=== PATIENT | male | born 1950 | race Caucasian/White ===

== ENCOUNTER 2024-11-09 17:14 | Emergency (ER) | payer MEDICARE, SELFPAY ==
--- NOTE | ~2024-11-09 | XR_ITS ---
CLINICAL HISTORY: RIght sided chest pain 2 view chest x-ray Comparison: None Findings: Minimal interstitial prominence. No focal consolidation. Normal size heart. No acute fracture. IMPRESSION: Minimal interstitial prominence. No focal consolidation. This document has been electronically signed by: Steve Diehl MD on 11/09/2024 18:26:55
--- NOTE | ~2024-11-09 | XR_ITS ---
CLINICAL HISTORY: back pain 3 views lumbar spine Comparison: None Findings: Chronic appearing height loss at T12 and L1. Significant disc space narrowing at L1-L2. Moderate disc space narrowing diffusely. Facet hypertrophy within the lower lumbar spine. No significant degenerative change. IMPRESSION: Moderate chronic changes are suggested. No comparison study. This document has been electronically signed by: Steve Diehl MD on 11/09/2024 18:27:24
[2024-11-09 17:18] VITALS: BP 143/71; PULSE 67; RESP 16; TEMP 36.5; O2SAT 97; BMI 29.8
--- NOTE | 2024-11-09 17:30 | ECG_ITS ---
Test Reason : R SIDED CP Blood Pressure : */* mmHG Vent. Rate : 62 BPM Atrial Rate : 62 BPM P-R Int : 196 ms QRS Dur : 80 ms QT Int : 392 ms P-R-T Axes : 90 -2 39 degrees QTcB Int : 397 ms Normal sinus rhythm Normal ECG When compared with ECG of 26-Dec-2005 14:49, No significant changes seen Referred By: Ad Dye Electronically Signed By: Anders Bryant
[2024-11-09 17:44] LABS: MANUAL DIFF FLAG NO
[2024-11-09 17:46] LABS: Basophils Percent Auto 0.2 % (0-2); Eosinophils Absolute Auto 0.1 X10*3/uL (0.0-0.4); Eosinophils Percent Auto 2.5 % (0-4); Hemoglobin 14.2 g/dl (14.0-18.0); Imm Gran Abs Auto 0.01 X10*3/uL (0.00-0.03); Imm Gran Pct Auto 0.2 % (0.0-0.4); Lymphocytes Absolute Auto 1.2 X10*3/uL (1.2-4.9); Lymphocytes Percent Auto 22.2 % (20-40); Mean Corpuscular HGB Conc 35.5 g/dl (31.0-36.0); Mean Corpuscular Hemoglobin 33.7 pg (27.0-33.0); Mean Platelet Volume 8.7 fL (9.4-12.4); Monocytes Absolute Auto 0.7 X10*3/uL (0.1-1.2); Monocytes Percent Auto 12.2 % (2-11); Neutrophils Absolute Auto 3.5 x10*3/uL (2.0-8.3); Neutrophils Percent Auto 62.7 % (45-73); Platelet Count 159 X10*3/uL (160-400); Red Blood Count 4.21 X10*6/uL (4.60-5.80); Red Cell Distribution Width 12.5 % (11.0-16.0); White Blood Count 5.6 X10*3/uL (4.8-10.8)
--- NOTE | 2024-11-09 17:49 | ED.GENADULT ---
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 Pain over right low back, with radiation upward to the mid back. Denies radiation of pain into the right lower extremity, no weakness of lower extremity no paresthesia, no urinary retention or bowel incontinence. Patient denies mechanism of injury, no repetitive activities. No trauma. Pain worse with movement. Related Data Previous Rx's ?Medication ?Instructions ?Recorded ketorolac 10 mg tablet 10 mg PO Q6H PRN pain #20 tabs 11/09/24 methocarbamol 750 mg tablet 1,500 mg (2 x 750 mg) PO BID PRN 11/09/24 pain, moderate #20 tabs Allergies Allergy/AdvReac Type Severity Reaction Status Date / Time No Known Allergies Allergy Verified 11/09/24 17:22 [No Known Allergies*] Review of Systems Review of Systems: Yes all other systems are reviewed and are negative Constitutional: Constitutional: Denies fatigue and Denies fever(s) Cardiovascular: Cardiovascular: Denies chest pain and Denies dyspnea Respiratory: Respiratory: Denies cough and Denies dyspnea Gastrointestinal: Gastrointestinal: Denies abdominal pain, Denies nausea and Denies vomiting Genitourinary: Genitourinary: Denies dysuria and Denies flank pain Musculoskeletal: Musculoskeletal: Reports back pain, Denies muscle weakness, Denies numbness, Denies radiating pain into limb and Denies tingling Neurologic: Denies numbness and Denies tingling Endocrine: Endocrine: Denies fatigue [facility] Past Medical History Attestation statement: The following information was validated with the patient. Social History Social History Advance Directives: No Advance Directives Information Provided: No Do you have a plan to hurt others: No Plan Physical Exam ED Vital Signs: Vital Signs - 24 hr 11/09/24 17:18 11/09/24 20:48 11/09/24 22:18 Temperature 97.7 F 97.5 F 98.1 F Pulse Rate 67 68 69 Respiratory Rate 16 16 16 Blood Pressure 143/71 H 142/75 H 124/69 Pulse Oximetry 97 98 98 Oxygen Delivery Method Room Air Room Air Room Air 11/09/24 22:31 Temperature 98.1 F Pulse Rate 69 Respiratory Rate 16 Blood Pressure 124/69 Pulse Oximetry 98 Oxygen Delivery Method Room Air BMI result Body Mass Index 29.8 Const Other: Alert well-appearing Orientation/consciousness: patient oriented x3 Resp Effort & Inspection: normal respiratory effort Cardio Other: Normal peripheral perfusion Skin Other: Warm dry no rash Neuro Other: Cranial nerves intact with the exception of cranial nerve 8 General: patient oriented x3, gait normal and no focal motor deficits Extrem Other: Strength 5/5 bilateral lower extremity Psych Other: Cooperative Course Course Course Narrative: RME: 73-year-old male presents to ED for constant right-sided back right-sided chest pain since last night without any trauma. Patient denies any shortness of breath fever or chills. Patient denies any genitourinary symptoms. Positive for right sided chest tenderness on palpation. EKG labs chest x-ray lumbar spine x-ray ordered. Medications Administered Discontinued Medications Generic Name Dose Route Start Last Admin Trade Name Freq PRN Reason Stop Dose Admin Ketorolac Tromethamine 15 mg 11/09/24 21:47 11/09/24 22:01 Ketorolac Tromethamine 15 Mg/Ml Vial IM 11/09/24 21:48 15 mg ONCE ONE Administration Methocarbamol 1,500 mg 11/09/24 21:47 11/09/24 22:01 Methocarbamol 750 Mg Tablet PO 11/09/24 21:48 1,500 mg ONCE ONE Administration Medical Decision Making Medical Decision Making [facility] Narrative: 73-year-old deaf male presents with back pain x1 day. Pain over right low back, with radiation upward to the mid back. Denies radiation of pain into the right lower extremity, no weakness of lower extremity no paresthesia, no urinary retention or bowel incontinence. Patient denies mechanism of injury, no repetitive activities. No trauma. Pain worse with movement. No relevant chronic issues History: Per patient I have considered the following differential diagnoses: Musculoskeletal strain, compression fracture, lumbar radiculopathy, cauda equina Plan: Screening labs were ordered from triage, no acute findings as expected. Patient was here with musculoskeletal pain. We will obtain imaging. He has no radicular symptoms and he has no red flag signs symptoms concerning for cord compression. I have independently reviewed the following tests: Labs: No leukocytosis, not anemic, no electrolyte abnormality noted EKG: Normal sinus rhythm, rate of 62, no ischemic changes no ectopy QTC 397 Chest x-ray: indings: Minimal interstitial prominence. No focal consolidation. Normal size heart. No acute fracture. IMPRESSION: Minimal interstitial prominence. No focal consolidation. X-ray lumbar spine:Findings: Chronic appearing height loss at T12 and L1. Significant disc space narrowing at L1-L2. Moderate disc space narrowing diffusely. Facet hypertrophy within the lower lumbar spine. No significant degenerative change. IMPRESSION: Moderate chronic changes are suggested. No comparison study. Lab Data 11/09/24 17:40 11/09/24 17:40 Labs: Lab Results 11/09/24 Range/Units 17:40 WBC 5.6 (4.8-10.8) X10*3/uL RBC 4.21 L (4.60-5.80) X10*6/uL Hgb 14.2 (14.0-18.0) g/dl Hct 40.0 L (42.0-52.0) % MCV 95.0 (80.0-98.0) fL MCH 33.7 H (27.0-33.0) pg MCHC 35.5 (31.0-36.0) g/dl RDW 12.5 (11.0-16.0) % Plt Count 159 L (160-400) X10*3/uL MPV 8.7 L (9.4-12.4) fL Immature Gran % (Auto) 0.2 (0.0-0.4) % Neut % (Auto) 62.7 (45-73) % Lymph % (Auto) 22.2 (20-40) % [place] % (Auto) 12.2 H (2-11) % Eos % (Auto) 2.5 (0-4) % Baso % (Auto) 0.2 (0-2) % Lymph # (Auto) 1.2 (1.2-4.9) X10*3/uL [place] # (Auto) 0.7 (0.1-1.2) X10*3/uL Eos # (Auto) 0.1 (0.0-0.4) X10*3/uL Baso # (Auto) 0.0 (0.0-0.2) X10*3/uL Abs Immat Gran (auto) 0.01 (0.00-0.03) X10*3/uL Absolute Neuts (auto) 3.5 (2.0-8.3) x10*3/uL Absolute Nucleated RBC 0.000 (0.0-0.012) X10*3/uL Nucleated RBC % (auto) 0.0 (0.0-0.2) /100WBC PT 10.7 L (10.9-12.4) SEC INR 0.9 (0.9-1.1) APTT 30.9 (26.0-36.8) SEC Sodium 141 (135-145) mmol/L Potassium 4.3 (3.3-5.1) mmol/L Chloride 108 (96-108) mmol/L Carbon Dioxide 27 (22-29) mmol/L Anion Gap 10 L (12-20) BUN 18 H (9-16) mg/dL Creatinine 0.97 (0.5-1.4) mg/dL Estim Creat Clear Calc 82.9 Estimated GFR > 60 Random Glucose 100 (60-115) mg/dL Calcium 9.7 (8.4-10.2) mg/dL Total Bilirubin 0.3 (0.0-1.0) mg/dL AST 31 (5-37) U/L ALT 35 (0-40) U/L Alkaline Phosphatase 88 (39-117) U/L Troponin I High Sens 3.0 (<3.5-35.0) ng/L Total Protein 6.6 (6.5-8.0) g/dL Albumin 4.1 (3.5-5.0) g/dL Discharge Plan 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 See home care instructions. Use the ketorolac as directed for pain, this is an anti-inflammatory. Take this medication with food. Use the methocarbamol as needed for further pain, this is a muscle relaxant. This medication will cause drowsiness, do not drive or operate machinery while taking the medication. All of your screening labs in the chest x-ray were normal. Follow up with your primary care as needed. Prescriptions: New methocarbamol 750 mg tablet 1,500 mg PO BID PRN (Reason: pain, moderate) Qty: 20 0RF ketorolac 10 mg tablet 10 mg PO Q6H PRN (Reason: pain) Qty: 20 0RF Rx Instructions: maximum total duration of 5 days from all oral, intranasal, or parenteral formulations. The patient received an intramuscular dose of Toradol here in the emergency room. Interventions: ED Discharge Assessment Last Done: 11/09/24 22:31 Discharge Date/Time: 11/09/24 22:33 Print Language: [place] Sign Language
[2024-11-09 17:52] LABS: INTERNATIONAL NORM RATIO 0.9 (0.9-1.1); Prothrombin Time 10.7 SEC (10.9-12.4)
[2024-11-09 17:54] LABS: Partial Thromboplastin Time 30.9 SEC (26.0-36.8)
[2024-11-09 18:08] LABS: Alanine Aminotransferase 35 U/L (0-40); Albumin Level 4.1 g/dL (3.5-5.0); Alkaline Phosphatase 88 U/L (39-117); Anion Gap 10 (12-20); Aspartate Amino Transferase 31 U/L (5-37); Bilirubin Total 0.3 mg/dL (0.0-1.0); Blood Urea Nitrogen 18 mg/dL (9-16); Calcium 9.7 mg/dL (8.4-10.2); Carbon Dioxide 27 mmol/L (22-29); Chloride 108 mmol/L (96-108); Creatinine Clr Calc Pharmacy 82.9; Estimated Glomerular Filt Rate > 60; Glucose Random 100 mg/dL (60-115); Potassium 4.3 mmol/L (3.3-5.1); Sodium 141 mmol/L (135-145); Total Protein 6.6 g/dL (6.5-8.0)
--- OUTSIDE RECORDS SUMMARY | 2024-11-09 18:56 | XMS_ITS | Clinical Summary ---
Author Organization 175 [facility] Address [address] [place] [address] Phone Care Team Providers Care Hearing Aide Technician Name Role Phone Tessa Crump MD Primary Care Provider [phone] Allergies Active Allergy Reactions Criticality Noted Date Comments Other 06/13/2015 Seasonal Allergies-Other Reaction(s): Runny Nose/Rhinitis Medications losartan (COZAAR) 50 mg tablet Take 1 tablet (50 mg total) by mouth 1 (one) time each day. 12/20/19 24 Active fluticasone propionate (FLONASE) 50 mcg/actuation nasal spray Active multivitamin with minerals (MULTIPLE VITAMIN-MINERAL S ORAL) Take 1 Tablet by mouth daily. Active MAGNESIUM ORAL Take 1 Tablet by mouth daily. Active finasteride (PROSCAR) 5 mg tablet Take 1 tablet (5 mg total) by mouth 1 (one) time each day. Active albuterol HFA (PROAIR HFA ; PROVENTIL HFA ; VENTOLIN HFA) 90 mcg/actuation inhaler Inhale 2 Puffs into the lungs every 6 hours as needed for Cough, Wheezing or Shortness of Breath for up to 30 days. 08/23/19 24 Active tetrahydrozolin e 0.05 % ophthalmic solution 1 Drop as needed. Active multivitamin with minerals tablet Take 1 Tablet by mouth daily. Active carboxymethylce -glycern-poly80 (Refresh Optive Advanced) 0.5-1-0.5 % drops apply to the eye. Active magnesium hydroxide (MILK OF MAGNESIA) 400 mg/5 mL suspension Take by mouth daily as needed. Active ketoconazole (NIZORAL) 2 % cream 02/09/20 20 Active mometasone (ELOCON) 0.1 % cream 08/11/19 Active OMEGA-3 FATTY ACIDS-FISH OIL ORAL Take by mouth daily. Active tamsulosin (FLOMAX) 0.4 mg 24 hr capsule Take 0.4 mg by mouth at bedtime. Active MEN'S MULTI-VITAMIN ORAL Take 1 Tablet by mouth daily. Active aspirin 81 mg EC tablet Take 81 mg by mouth daily. Active albuterol HFA (PROAIR HFA ; PROVENTIL HFA ; VENTOLIN HFA) 90 mcg/actuation inhaler Inhale 2 puffs by mouth every 6 (six) hours if needed for wheezing or shortness of breath. 3 each 3 10/15/19 25 026 Active cetirizine (ZyrTEC) 10 mg tablet TAKE 1 TABLET BY MOUTH DAILY 30 tablet 1 10/24/19 25 Active ibuprofen (ADVIL,MOTRIN) 600 mg tabletIndicatio ns:Chronic low back pain, unspecified back pain laterality, unspecified whether sciatica present Take 1 tablet (600 mg total) by mouth 4 (four) times a day if needed for mild pain (pain). Take with food. 90 tablet 10/27/19 25 026 Active cetirizine (ZyrTEC) 10 mg tablet Take 1 tablet (10 mg total) by mouth 1 (one) time each day. 12/10/19 24 025 Discontinued Active Problems Problem Noted Date Diagnosed Date Kidney cysts 05/12/2024 Hypertension 02/04/2024 Overview (05/12/2024): Last Assessment & Plan: Blood pressure is at goal is 130/80 on current regimen which includes losartan Dyspnea 12/23/2023 Overview (05/12/2024): Last Assessment & Plan: Intermittent dyspnea on exertion. I recommended an exercise treadmill stress test to evaluate exercise capacity and for evidence of cardiac ischemia. If unremarkable then I would likely attribute his dyspnea to weight gain. Lung nodule 08/01/2023 Cardiomegaly 11/14/2021 Ascending aorta dilatation 11/23/2020 Overview (05/12/2024): [address] 10/03/20; 4.4 cm In 2020. Last Assessment & Plan: Will plan to follow with repeat echocardiogram in 1 year. Blood pressure at goal less than 130/80. Left inguinal hernia 10/02/2018 Overview (05/12/2024): Small, fat containing noted on CT done by Dr. Monte Abdominal pain, chronic, right lower quadrant Kidney stone 01/20/2013 Known medical problems 05/23/2010 Overview (05/12/2024): Hearing Impaired Person Allergic rhinitis 11/10/2009 Dermatophytosis of nail 11/10/2009 Spondylosis 11/10/2009 Benign prostatic hyperplasia without lower urinary tract symptoms 11/09/2009 Encounters Date Type Department Care Team Description 10/26/2024 2:30 PM EDT Office Visit Internal Medicine - [address] [phone] Marii Reece NP Primary hypertension (Primary Dx); Benign prostatic hyperplasia without lower urinary tract symptoms; Ascending aorta dilatation (CMS/HCC); Aneurysm of descending thoracic aorta without rupture (CMS/HCC); Lung nodule; Diverticulitis; Chronic low back pain, unspecified back pain laterality, unspecified whether sciatica present 10/26/2024 Telephone Internal Medicine - [place] [address] [phone] Marii Reece NP Medical supply 10/14/2024 11:00 AM EDT Office Visit Pulmonolgy - [place] [address] [phone] Ariela Marlow MD Lung nodules (Primary Dx); Chronic bronchitis, unspecified chronic bronchitis type (CMS/HCC) 10/14/2024 Telephone Internal Medicine [facility] [address] [phone] Tessa Crump MD Error 09/21/2024 1:37 PM EST - 09/21/2024 11:59 PM EST Hospital Encounter CT Scan - [address] [phone] Chronic bronchitis, unspecified chronic bronchitis type (CMS/HCC); Lung nodules Discharge Disposition: Home or Self Care from Last 3 Months Immunizations Name Administration Dates Next Due Influenza Quadravalent, MDCK , 0.5ml, preservative free (Flucelvax) 6mo and older 08/28/2019,08/26/2018 Influenza trivalent, 0.5mL ( Fluzone High-dose) 65yo and older 06/13/2021 Influenza trivalent, with pr eservative (Fluzone; Afluria) 6mo and older 09/28/2016,06/13/2015,06/17/2014,04/20,08/25/2012,06/15/2010,05/02/2009 ,06/21/2008 Pfizer SARS-CoV-2 COVID-19, mRNA, LNP-S, preservative free 05/22/2021,11/23/2020,11/02/2020 Pneumococcal conjugate 13 va lent (Prevnar 13, PCV13) 2mo and older 11/05/2017 Pneumococcal polysaccharide 23 valent (Pneumovax 23) 2yo and older 09/28/2016 Td Tetanus diptheria (Tdvax) 7yo and older 06/21/2008 Tdap Tetanus diptheria acell ular pertussis (Boostrix; Adacel) 7yo and older 09/26/2012 Zoster Live 04/20/2013,09/26/2012 Zoster recombinant (Shingrix ) 19yo and older 07/06/2020,04/29/2020 Surgical History Surgery Date Site/Laterality Comments FOOT SURGERY PROCEDURE: HISTORICAL FOOT SURGERY; COMMENT: broken foot COLONOSCOPY 12/15/2008 PROCEDURE: HISTORICAL COLONOSCOPY; COMMENT: Dr Ratliff - 3 mm flat tubular adenomatous polyp of the transverse colon COLONOSCOPY 2012 PROCEDURE: MD COLONOSCOPY FLX DX W/COLLJ SPEC WHEN PFRMD; COMMENT: melanosis coli, no polyps Medical History Medical History Date Comments Deaf DX:Deaf; COMMENT : Spondylosis DX:Spondylosis Diverticulosis 10/2009 DX:Diverticulosi s; COMMENT: on CT Scan Degenerative arthritis of lumbar spine DX:Degenerative arthritis of lumbar spine; COMMENT: without evidence of significant interspace narrowing or comppression fracture Hearing impaired person 05/23/2010 DX:Heari ng impaired person Kidney stone 01/20/2013 DX:Kidney stone Dermatophytosis of nail 11/10/2009 DX:[place] tophytosis of nail BPH (benign prostatic hypertrophy) 11/09/2009 DX:BPH (benign prostatic hypertrophy) Abdominal pain, chronic, rig ht lower quadrant 07/08/2013 DX:Abdominal pain, chronic, right lower quadrant Allergic rhinitis 11/10/2009 DX:Allergic rh initis Kidney cysts DX:Kidney cysts Family History Medical History Relation Name Comments Other: heart disease Father COPD Mother currently on ho spice Other: alcholism Mother Autoimmune disease Neg Hx Breast cancer Neg Hx Colon cancer Neg Hx Coronary artery disease Neg Hx Diabetes Neg Hx Heart attack Neg Hx Heart failure Neg Hx Hyperlipidemia Neg Hx Hypertension Neg Hx Mental illness Neg Hx Prostate cancer Neg Hx Sleep apnea Neg Hx Thyroid disease Neg Hx Relation Name Status Comments Father (Age 60) heart, [place] Mother (Age 99) deaf; HTN, copd, alcoholic in remission, prior smoker; 97 in 2017 Son Alive bipolar Social History Tobacco Use Types Packs/Day Years Used Date Smoking Tobacco: Former Cigarettes 0.3 10 0 08/05/1967 - 08/05/1977 Smokeless Tobacco: Never Tobacco Cessation:Counseling Given: Not Answered Alcohol Use Standard Drinks/Week Comments No 0 (1 standard drink = 0.6 oz pur e alcohol) Sex and Gender Information Value Date Recorded Sex Assigned at Not on file Legal Sex Male 8:59 PM EST Gender Identity Not on file Sexual Orientation Not on file Obstetrics History Last Filed Vital Signs Vital Sign Reading Time Taken Comments Blood Pressure 112/74 10/14/2024 11:03 AM EDT Pulse 76 10/14/2024 11:03 AM EDT Temperature 35.8 ??C (96.5 ??F) 10/14/2024 11:03 AM E DT Respiratory Rate 17 10/14/2024 11:03 AM EDT Oxygen Saturation 96% 10/14/2024 11:03 AM EDT Inhaled Oxygen Concentration - - Weight 102 kg (225 lb 3.2 oz) 10/14/2024 11:03 A M EDT Height 180.3 cm (5' 11 ) 10/14/2024 11:03 AM EDT Body Mass Index 31.41 10/14/2024 11:03 AM EDT Plan of Treatment Upcoming Encounters Date Type Department Care Team (Latest Contact Info) Description 11/17/2024 2:00 PM EDT Evaluation [address] [place] [phone] Brandy Marin, PT 11/23/2024 2:00 PM EDT Consult Gastroenterology - [place] [address] [phone] Bean Mckee PA [address] [phone] 12/21/2024 2:30 PM EDT Office Visit Internal Medicine - [place] [address] [phone] Tessa Crump MD [address] [phone] 01/26/2025 2:30 PM EDT Ancillary Procedure [facility] [address] [facility] [address] [place] [phone] 10/14/2025 1:00 PM EDT Office Visit Pulmonolgy - [place] [address] [phone] Ariela Marlow MD [address] [phone] Health Maintenance Due Date Last Done Comments Colorectal Cancer Screening: Colonoscopy 07/14/2022 Falls Risk Assessment 07/14/2022 Social Influencers of Health Screening 07/14/2022 Depression Screening 08/01/2024 08/01/2023 Medicare Annual Wellness Visit 08/01/2024 08/01/2023 Hypertension/CHF/CAD Annual BMP Blood Test 06/30/2025 06/30/2024, 08/23/2023 Cholesterol Screening (Lipid Panel) 06/30/2029 06/30/2024, 08/23/2023 DTaP,Tdap,and Td Vaccines (4 - Td or Tdap) 04/03/2033 04/03/2023, 09/26/2012, 06/21/2008 Abdominal Aortic Aneurysm (AAA) Screen Completed 12/18/2012 Hepatitis C Screening Completed 09/01/2019 Pneumococcal Vaccine: 50+ Years Completed 04/29/2020, 11/05/2017, 09/28/2016 Zoster Vaccines Completed 07/06/2020, 04/06, 04/20/2013, Additional history exists RSV Immunization Adult Patients Completed 05/14/2023 COVID-19 Vaccine Completed 05/05/2024, , 06/21/2022, Additional history exists Influenza Vaccine Completed 05/05/2024, , 06/13/2021, Additional history exists HIB Vaccines Aged Out No longer eligi ble based on patient's age to complete this topic HPV Vaccines Aged Out No longer eligi ble based on patient's age to complete this topic Hepatitis A Vaccines Aged Out No long er eligible based on patient's age to complete this topic Hepatitis B Vaccines Aged Out No long er eligible based on patient's age to complete this topic IPV Vaccines Aged Out No longer eligi ble based on patient's age to complete this topic MMR Vaccines Aged Out No longer eligi ble based on patient's age to complete this topic Meningococcal ACWY Vaccine Aged Out N o longer eligible based on patient's age to complete this topic Meningococcal B Vaccine Aged Out No l onger eligible based on patient's age to complete this topic RSV Immunization Patients Under 20 months Aged Out No longer eligible based on patient's age to complete this topic Varicella Vaccines Aged Out No longer eligible based on patient's age to complete this topic Procedures Procedure Name Priority Date/Time Associated Diagnosis Comments CT CHEST WO CONTRAST Routine 09/21/2024 1:52 PM EST Chronic bronchitis, unspecified chronic bronchitis type (CMS/HCC) Lung nodules COMPREHENSIVE METABOLIC PANEL Routine 06/30/2024 7:47 AM EST Nonspecific abnormal results of kidney function study Essential hypertension, benign Hyperlipemia LIPID PANEL WITH REFLEX TO DIRECT LDL Routine 06/30/2024 7:47 AM EST Nonspecific abnormal results of kidney function study Essential hypertension, benign Hyperlipemia DEPRESSION SCREENING Routine 08/01/2023 HEPATITIS C SCREENING Routine 09/01/2019 ABDOMINAL AORTIC ANEURYSM SCRREN Routine 12/18/2012 from Last 3 Months or Most Recently Relevant to Health Maintenance Results * CT Chest wo Contrast (09/21/2024 1:52 PM EST) Anatomical Region Laterality Modality Body Computed Tomogra phy 09/21/2024 2:01 PM EST Impressions 09/21/2024 2:52 PM EST 1. ??Respiratory motion limits evaluation for the previously described groundglass opacity and small pulmonary nodules. 2. ??Unchanged aneurysmal dilatation of the descending thoracic aorta. -------- FINAL REPORT -------- Dictated By: Dayan Ruby Dictated Date: 09/21/2024 14:01 ET Assigned Physician: Dayan Ruby Reviewed and Electronically Signed By: Dayan Ruby Signed Date: 09/21/2024 14:52 ET Workstation ID: [id number] Transcribed By: Self Edit Transcribed Date: 09/21/2024 14:01 ET Narrative 09/21/2024 2:[address] CHEST WO CONTRAST TECHNIQUE: Multidetector CT of the chest was performed without intravenous contrast. COMPARISON: HISTORY: Lung nodule, < 6mm, high cancer risk FINDINGS: Lungs: Central airways are clear. ??Respiratory motion limits evaluation for small pulmonary nodules. ??No confluent consolidation. ??Patchy area of groundglass opacity in the right lower lobe likely, more pronounced the previous examination due to respiratory motion, could be in part due to small airways disease. ??The previously described larger pulmonary nodules in the right middle lobe and left lower lobe are present, however, their size cannot be evaluated due to motion. ??No obvious new large pulmonary nodules. Pleura: No pleural effusion or pneumothorax. Mediastinum: No thyroid nodules. ??Mild cardiomegaly. ??Moderate coronary artery calcifications. Scattered calcifications along the thoracic aorta. ??Unchanged dilatation of the ascending thoracic aorta measuring 4.2 cm in the coronal plane. Lymph Nodes: No lymphadenopathy. Upper Abdomen: Colonic diverticulosis. Chest Wall: No concerning findings. Bones: Unchanged partially included sclerotic lesion of the left humeral head. ??No acute or suspicious bone abnormality. Procedure Note Dayan Ruby MD - 09/21/2024 CT CHEST WO CONTRAST TECHNIQUE: Multidetector CT of the chest was performed without intravenouscontrast. COMPARISON: HISTORY: Lung nodule, < 6mm, high cancer risk FINDINGS: Lungs: Central airways are clear. Respiratory motion limits evaluationfor small pulmonary nodules. No confluent consolidation. Patchy area ofgroundglass opacity in the right lower lobe likely, more pronounced theprevious examination due to respiratory motion, could be in part due tosmall airways disease. The previously described larger pulmonary nodulesin the right middle lobe and left lower lobe are present, however, theirsize cannot be evaluated due to motion. No obvious new large pulmonarynodules. Pleura: No pleural effusion or pneumothorax. Mediastinum: No thyroid nodules. Mild cardiomegaly. Moderate coronaryartery calcifications. Scattered calcifications along the thoracic aorta.Unchanged dilatation of the ascending thoracic aorta measuring 4.2 cm inthe coronal plane. Lymph Nodes: No lymphadenopathy. Upper Abdomen: Colonic diverticulosis. Chest Wall: No concerning findings. Bones: Unchanged partially included sclerotic lesion of the left humeralhead. No acute or suspicious bone abnormality. IMPRESSION: 1. Respiratory motion limits evaluation for the previously describedgroundglass opacity and small pulmonary nodules. 2. Unchanged aneurysmal dilatation of the descending thoracic aorta. -------- FINAL REPORT -------- Dictated By: Dayan Ruby Dictated Date: 09/21/2024 14:01 ET Assigned Physician: Dayan Ruby Reviewed and Electronically Signed By: Dayan Ruby Signed Date: 09/21/2024 14:52 ET Workstation ID: [id number] Transcribed By: Self Edit Transcribed Date: 09/21/2024 14:01 ET Ariela Marlow MD [facility] CT PROCEDURES Final Result * (ABNORMAL) Lipid panel with reflex to direct LDL (06/30/2024 7:47 AM EST) Cholesterol 186 0 - 200 mg/dL LAB CHEMISTRY METHOD 06/30/2024 10:22 AM EST [facility] Triglycerides 104 0 - 150 mg/dL LAB CHEMISTRY METHOD 06/30/2024 10:22 AM [facility] HDL 57 >=40 mg/dL LAB CHEMISTRY METHOD 06/30/2024 10:22 AM [facility] LDL Calculated 108(H) 0 - 100 mg/dL LAB CHEMISTRY METHOD 06/30/2024 10:22 AM [facility] VLDL Cholesterol Gerardo 20.8 mg/dL LAB CHEMISTRY METHOD 06/30/2024 10:22 AM [facility] Non HDL Chol. (LDL+VLDL) 129 <145 mg/dL LAB CHEMISTRY METHOD 06/30/2024 10:22 AM [facility] Chol/HDL Ratio 3.3 0.0 - 4.4 LAB CHEMISTRY METHOD 06/30/2024 10:22 AM [facility] Blood Venous blood specimen / Unknown Venipuncture / Unknown 06/30/2024 7:47 AM EST 06/30/2024 7:47 AM EST us Tessa Crump MD LAB BLOOD ORDERABLES Final Res ult [facility] [address] [place] [address], * (ABNORMAL) Comprehensive metabolic panel (06/30/2024 7:47 AM EST) Sodium 140 133 - 145 mmol/L LAB CHEMISTRY METHOD 06/30/2024 10:22 AM [facility] Potassium 4.4 3.5 - 5.5 mmol/L LAB CHEMISTRY METHOD 06/30/2024 10:22 AM [facility] Chloride 108 96 - 110 mmol/L LAB CHEMISTRY METHOD 06/30/2024 10:22 AM [facility] CO2 29 21 - 32 mmol/L LAB CHEMISTRY METHOD 06/30/2024 10:22 AM [facility] Anion Gap 3 3 - 11 LAB CHEMISTRY METHOD 06/30/2024 10:22 AM [facility] Glucose 101(H) 70 - 100 mg/dL LAB CHEMISTRY METHOD 06/30/2024 10:22 AM [facility] BUN 20 5 - 25 mg/dL LAB CHEMISTRY METHOD 06/30/2024 10:22 AM [facility] Creatinine 1.13 0.70 - 1.30 mg/dL LAB CHEMISTRY METHOD 06/30/2024 10:22 AM [facility] eGFR 69 >=60 mL/min/1. 73m2 LAB CHEMISTRY METHOD 06/30/2024 10:22 AM [facility] Comment:Calculation based on the??Chronic Kidney Disease Epidemiology Collaboration (CKD-EPI) equation refit??without adjustment for race. BUN/Creatinine Ratio 17.7 LAB CHEMISTRY METHOD 06/30/2024 10:22 AM [facility] Calcium 9.2 8.5 - 10.5 mg/dL LAB CHEMISTRY METHOD 06/30/2024 10:22 AM [facility] AST (SGOT) 19 10 - 42 unit/L LAB CHEMISTRY METHOD 06/30/2024 10:22 AM [facility] ALT (SGPT) 29 10 - 60 unit/L LAB CHEMISTRY METHOD 06/30/2024 10:22 AM [facility] Alkaline Phosphatase 76 42 - 121 unit/L LAB CHEMISTRY METHOD 06/30/2024 10:22 AM [facility] Total Protein 6.5 6.0 - 8.0 g/dL LAB CHEMISTRY METHOD 06/30/2024 10:22 AM [facility] Albumin 3.9 3.2 - 5.0 g/dL LAB CHEMISTRY METHOD 06/30/2024 10:22 AM [facility] Total Bilirubin 0.6 0.0 - 1.4 mg/dL LAB CHEMISTRY METHOD 06/30/2024 10:22 AM [facility] Blood Venous blood specimen / Unknown Venipuncture / Unknown 06/30/2024 7:47 AM EST 06/30/2024 7:47 AM EST Tessa Crump MD LAB BLOOD ORDERABLES Final Res ult [facility] [address] [place] [address], * Depression Screening (08/01/2023) Depression Screening abstracted Historical Provider HEALTH MAINTENANCE Final Result * Hepatitis C Screening (09/01/2019) Hepatitis C Screening abstracted Historical Provider HEALTH MAINTENANCE Final Result * Abdominal Aortic Aneurysm Screen (12/18/2012) Abdominal Aortic Aneurysm (AAA) Screening abstracted Anatomical Region Laterality Modality Other Historical Provider HEALTH MAINTENANCE Final Result from Last 3 Months or Most Recently Relevant to Health Maintenance Insurance [employer] [address] [place] [address] Care Teams Hearing Aide Technician Relationship Specialty Start Date End Date Tessa Crump MD 175 [facility] [address] [place] [phone] PCP - General Internal Medicine 03/15/22
--- OUTSIDE RECORDS SUMMARY | 2024-11-09 18:56 | XMS_ITS | Encounter Summary ---
Author Organization [facility] Address [address] [place] [address] Care Team Providers Care Coagulating Drying Supervisor Name Role Phone Tessa Crump MD Primary Care Provider [phone] Reason for Visit * Reason Onset Date Comments Error 10/14/2024 Encounter Details Date Type Department Care Team (Late st Contact Info) Description 10/14/2024 Telephone Internal Medicine - [place] 175 [facility] [address] [place] [address] Tessa Crump MD 175 [facility] [address] [place] [address] Error Social History Tobacco Use Types Packs/Day Years Used Date Smoking Tobacco: Former Cigarettes 0.3 10 0 08/05/1967 - 08/05/1977 Smokeless Tobacco: Never Alcohol Use Standard Drinks/Week Comments No 0 (1 standard drink = 0.6 oz pur e alcohol) Sex and Gender Information Value Date Recorded Sex Assigned at Not on file Legal Sex Male 8:59 PM EST Gender Identity Not on file Sexual Orientation Not on file documented as of this encounter Plan of Treatment Upcoming Encounters Date Type Department Care Team (Latest Contact Info) Description 11/17/2024 2:00 PM EDT Evaluation [facility] [place] 175 [facility] [address] [place] [address] Brandy Marin, SOFI 11/23/2024 2:00 PM EDT Consult Gastroenterology - [place] 175 [place] [address] [facility] [address] [place] [phone] Bean Mckee PA 175 [facility] [address] [place] [address] 12/21/2024 2:30 PM EDT Office Visit Internal Medicine - [place] 175 [facility] [address] [place] [phone] Tessa Crump MD [address] [phone] 01/26/2025 2:30 PM EDT Ancillary Procedure [facility] - [facility] [address] [facility] [address] [place] [phone] 10/14/2025 1:00 PM EDT Office Visit Pulmonolgy - [place] [address] [phone] Ariela Marlow MD [address] [address] documented as of this encounter Visit Diagnoses Not on filedocumented in this encounter Care Teams Coagulating Drying Supervisor Relationship Specialty Start Date End Date Tessa Crump MD [address] [phone] PCP - General Internal Medicine 03/15/22 documented as of this encounter
[2024-11-09 20:48] VITALS: BP 142/75; PULSE 68; RESP 16; TEMP 36.4; O2SAT 98
[2024-11-09] MEDS: Ketorolac Tromethamine 15 MG/ML VIAL IM (22:01)
[2024-11-09] MEDS: methocarbamoL 750 MG TABLET 1500 MG PO (22:01)
[2024-11-09 22:18] VITALS: BP 124/69; PULSE 69; RESP 16; TEMP 36.7; O2SAT 98
[2024-11-09 22:31] VITALS: BP 124/69; PULSE 69; RESP 16; TEMP 36.7; O2SAT 98
== END 2024-11-09 22:33 | disposition home or self-care (01) ==
PROVIDERS: Physician Assistant; Emergency Provider Internal Medicine; PCP Internal Medicine
DX: M47.816 Spondylosis without myelopathy or radiculopathy, lumbar region (principal); M54.50 Low back pain, unspecified; R07.89 Other chest pain; Z79.899 Other long term (current) drug therapy
CPT/HCPCS: 36415; 71046; 72100; 80053; 84484; 85025; 85610; 85730; 93005; 96372; 99284; 99285; J1885

== ENCOUNTER → 2024-11-09 17:30 | Outpatient (BNV) | payer MEDICARE, SELFPAY | PROVIDERS: Emergency Provider Internal Medicine; PCP Internal Medicine; Visit Provider Internal Medicine Cardiovascular Disease | DX: R07.9 Chest pain, unspecified (principal) | CPT/HCPCS: 93010 ==

== ENCOUNTER → 2024-11-09 17:30 | Outpatient (BNV) | payer MEDICARE, SELFPAY | PROVIDERS: PCP Internal Medicine; Visit Provider Radiology Vascular & Interventional Radiology | DX: J84.9 Interstitial pulmonary disease, unspecified (principal); M54.50 Low back pain, unspecified | CPT/HCPCS: 71046; 72100 ==